=== PATIENT | male | born 1960 ===

== ENCOUNTER 2018-04-24 12:17 | Emergency (ER) | payer OTHER, SELFPAY ==
[2018-04-24 12:15] VITALS: PULSE 0
--- NOTE | 2018-04-24 12:37 | PC.NURSE ---
per medic jamar,last seen normal one hour prior to finding down, unconscious, no stand by cpr started, aed required to shock twice, ems found pt with pea, total epinephrine given 10mg with bicarb, shocked x2. intubated with 7.5 by ems, right lower leg with IO/Hl. on arrival cpr in progress, no pulse, given another epinephrine in er. no cardiac motion by u/s by dr ramirez, remain pulseless, asystole. ems jamar left message to [phone] in system found Rick Thomason, tanner 64 Rubi Thomason [birth year] Reagan Thomas [birth year]
--- NOTE | 2018-04-24 12:41 | ED_ITS ---
HPI - CPR General Chief Complaint: Cardiac Arrest/CPR Stated Complaint: Found down Time Seen by Provider: 04/24/18 12:25 Source: EMS Mode of arrival: EMS Limitations: physical limitation History of Present Illness HPI narrative: The patient is a 57-year-old male found down by family. CPR has been ongoing for the last hr and a half or more. Initially fine VFib was noted by EMS 2 shocks were administered. He is had 10 rounds of epi and 1 of bicarb. He continues stent the PEA. No known history. Family is on their way. at bedside says she when out to feed horses about an hour prior to when she found him. She found him in the kitchen by the kitchen sink with the water running. Unable to wake him unresponsive. EMS called. MD complaint: found unresponsive AED applied by bystander/production welding supervisor: Yes Number of shocks delivered: 2 Initial findings in the field: VTACH/VFIB ROSC in the field: No Associated injuries: No Review of Systems Review of Systems due to endotracheal tube Exam Initial Vital Signs Initial Vital Signs: Vital Signs Pulse Rate 0 L 04/24/18 12:15 Gen.: Intubated with serosanguineous fluid in ET tube. HEENT: ET tube in place, vomit around male, almost cyanotic. Pupils fixed nonreactive Chest: Abrasion at sternum Lungs: Coarse breath sounds bilaterally Cardiac: No pulses Abdomen: Distended Extremities: No sign of trauma no pulses Neuo: Pupils fixed, unresponsive Neurologic: [ ] PFSH Medical History Unknown family medical history (Acute) Unknown if ever smoked (Acute) Unknown if patient has history of cardiac disorders (Acute) Course Vital Signs - 8 hr 04/24/18 12:15 Pulse Rate 0 L MDM - Cardiac Arrest/CPR MDM Narrative Medical decision making narrative: CPR continued for 1 full round with at the. Glucose was checked. Patient has been down for more than an hour and a half no ROSC. Bedside ultrasound by me confirmed by me no cardiac activity. Time of 12:23 p.m. Family supposedly on the way. at bedside. Confirms no medical history Discharge Plan Departure Patient Disposition: Clinical Impression: Cardiac arrest Discharge Date/Time: 04/24/18 17:09 Interventions: ED Discharge Assessment Last Done: 04/24/18 17:06
--- NOTE | 2018-04-24 13:37 | PC.NURSE ---
coroners cooper on the phone, wanting to speak with spouse.
--- NOTE | 2018-04-24 13:52 | PC.NURSE ---
coronmarleny gamboa, spoke with spouse via phone.
--- NOTE | 2018-04-24 13:55 | PC.NURSE ---
stacker and sorter operator will came in and do external examination, then can picker tender the body per cooper.
--- NOTE | 2018-04-24 14:10 | PC.NURSE ---
[facility] has been contacted, body will be release by coroners then remain to go with home
--- NOTE | 2018-04-24 15:07 | PC.NURSE ---
see code blue chart.
--- NOTE | 2018-04-24 15:12 | PC.NURSE ---
waldemar at bs.
--- NOTE | 2018-04-24 16:18 | PC.NURSE ---
crop research scientist removed ett. may release to [facility] . cooper will call them. spouse at bs. at this time.
--- NOTE | 2018-04-24 16:52 | PC.NURSE ---
still waiting for franny
== END 2018-04-24 17:09 | disposition expired ==
LOC: ED 12:54
PROVIDERS: Emergency Provider Emergency Medicine
DX: I46.9 Cardiac arrest, cause unspecified (principal)
CPT/HCPCS: 92950; 94770; 99281; 99285; J0171